=== PATIENT | female | born 1955 | race Caucasian/White ===

== ENCOUNTER → 2021-09-23 | Outpatient (CLI) | payer MEDICARE, OTHER | LOC: COL.RAD 08:18 | DX: K83.9 Disease of biliary tract, unspecified (principal) ==

== ENCOUNTER 2024-02-04 13:19 | Emergency (ER) | payer MEDICARE ==
[~2024-02-04] VITALS: Ht 152.4 cm; Wt 52.3 kg
[2024-02-04 13:36] VITALS: TEMP 98
[2024-02-04 14:40] LABS: BASO % 0.2 % (0.0-2.0); EOS # 0.1 K/mm3 (0.0-0.7); EOS % 0.7 % (0.0-4.0); GRAN # 6.3 K/mm3 (1.4-6.5); HEMATOCRIT 43.2 % (37.0-47.0); HEMOGLOBIN 14.4 g/dl (12.5-16.0); LYMPH # 1.3 K/mm3 (1.2-3.4); LYMPH % 15.8 % (20.0-51.0); MEAN CELL VOLUME 96 fl (80.0-100.0); MEAN CORPUSCULAR HEMOGLOBIN 32 pg (27-31); MEAN CORPUSCULAR HGB CONC 33 g/dl (33.0-37.0); MEAN PLATELET VOLUME 10.4 fl (7.4-10.4); MONO # 0.4 K/mm3 (0.1-0.6); MONO % 4.9 % (1.7-9.3); PLATELET COUNT 246 K/mm3 (130-400); RED BLOOD COUNT 4.51 M/mm3 (4.10-5.30); REDCELL DISTRIBUTION WIDTH-CV 12.8 % (11.5-14.5)
[2024-02-04 14:58] LABS: ALBUMIN 4.2 g/dL (3.4-4.8); BILIRUBIN,TOTAL 0.5 mg/dL (0.2-1.2); CREATININE, serum 1.05 mg/dL (0.57-1.11); POTASSIUM 4.6 mEq/L (3.5-4.5); TOTAL PROTEIN 8.3 g/dl (6.2-8.1)
[2024-02-04] MEDS ORDERED: Erythromycin 0.5% Ophth Oint 3.5 GM TUBE OP ONE (16:00)
[2024-02-04] MEDS ORDERED: Ondansetron 4 MG/2 ML VIAL IV ONE (16:15)
[2024-02-04] MEDS ORDERED: NS 1,000 ML IV ONE (16:15)
[2024-02-04 17:33] VITALS: BP 114/78; PULSE 62
== END 2024-02-04 17:54 | disposition home or self-care (01) ==
LOC: COL.ER 13:19
PROVIDERS: Physician Assistant
DX: S05.02XA Injury of conjunctiva and corneal abrasion without foreign body, left eye, initial encounter (principal); R55 Syncope and collapse; X58.XXXA Exposure to other specified factors, initial encounter
CPT/HCPCS: J2405; J7030